=== PATIENT | female | born 1970 | race Caucasian/White ===

== ENCOUNTER → 2022-02-07 | Outpatient (CLI) | payer BC, SELFPAY ==
[2022-02-07 17:27] LABS: Eosinophil# 0.04 X10^3/uL; Eosinophils% 1.9 % (0-5); Hematocrit 45.1 % (37-47); Hemoglobin 14.7 g/dL (12.0-15.0); Lymphocyte % 42.3 % (19-41); Mean Corp Hgb Conc 32.6 g/dL (32-36); Mean Corpuscular Hgb 30.2 pg (27.0-32.0); Mean Corpuscular Volume 92.6 fL (81-99); Mean Platelet Vol. 11.4 fl (6.2-12.0); Monocyte# 0.15 X10^3/uL; NRBC Flagged by Analyzer 0 % (0-5); Neutrophil # 1.03 X10^3/uL (2.7-7.7); Neutrophil % 48.3 % (47-70); Platelet Count 182 K/mm3 (150-450); RBC Distribution Width CV 11.6 % (11.6-14.6); RBC Distribution Width SD 39.5 fl (35.1-43.9); Red Blood Count 4.87 M/mm3 (4.2-5.4); White Blood Count 2.1 K/mm3 (4.4-11.0)
[2022-02-07 17:35] LABS: Erythrocyte Sedimentation Rate 56 mm/hr (0-30)
[2022-02-07 17:57] LABS: ALB/GLOB Ratio 1.3 RATIO (0.9-2.4); AST(SGOT) 15 U/L (15-37); Alanine Aminotransfer ALT/SGPT 26 U/L (13-56); Albumin, Serum 4.8 g/dL (3.2-5.0); Alkaline Phosphatase 73 U/L (45-117); Anion Gap 9 (5-15); BUN 11 mg/dL (7-18); BUN/Creat Ratio 18.9 RATIO (10-20); CRP 5.83 mg/L (0.0-3.0); Chloride 104 mmol/L (98-107); Creatinine, Serum 0.58 mg/dL (0.55-1.02); EST Glomerular Filtration Rate 117 mL/min (>60); Est Glom Filt Rate - Afr Amer 141 mL/min (>60); Estradiol 35.7 pg/mL; Ferritin 156 ng/mL (8-252); Free T3 3.3 pg/mL (2.18-3.98); Globulin 3.8 g/dL (2.2-4.2); Glucose 95 mg/dL (74-106); Iron 88 ug/dL (50-170); Magnesium 2.4 mg/dL (1.6-2.6); Potassium 4.3 mmol/L (3.5-5.1); Protein, Total 8.6 g/dL (6.4-8.2); Sodium Level 143 mmol/L (136-145); Thyroid Stim Hormone (TSH) 0.95 uIU/mL (0.358-3.74)
[2022-02-07 18:01] LABS: Progesterone Level 0.44 ng/mL (See Comment); Vitamin B12 794 pg/mL (211-911); Vitamin D,25 Hydroxy 30.6 ng/mL
== END | disposition home or self-care (01) ==
LOC: LABSPEC 17:12
PROVIDERS: Visit Provider Nurse Practitioner Family
DX: R53.83 Other fatigue (principal); D64.9 Anemia, unspecified; R42 Dizziness and giddiness
CPT/HCPCS: 80053; 82306; 82607; 82627; 82670; 82728; 83540; 83735; 84144; 84403; 84439; 84443; 84481; 85025; 85652; 86140; 82626

== ENCOUNTER → 2023-08-07 | Outpatient (CLI) | payer OTHER, SELFPAY ==
[2023-08-07 16:23] LABS: Absolute Lymphocyte Count 0.98 X10^3/uL (0.83-4.51); Absolute Neutrophil Count 1.1 X10^3/uL (2.0-7.7); Basophil# 0.02 X10^3/uL; Basophil% 0.8 % (0-1); Eosinophil# 0.08 X10^3/uL; Eosinophils% 3.3 % (0-5); Hematocrit 41.5 % (37-47); Hemoglobin 13.4 g/dL (12.0-15.0); Lymphocyte # 0.98 X10^3/ul (0.83-4.51); Mean Corp Hgb Conc 32.3 g/dL (32-36); Mean Corpuscular Hgb 32.1 pg (27.0-32.0); Mean Corpuscular Volume 99.5 fL (81-99); Mean Platelet Vol. 11.1 fl (6.2-12.0); Monocyte# 0.31 X10^3/uL; Monocyte% 12.7 % (0-10); NRBC Flagged by Analyzer 0 % (0-5); Neutrophil # 1.06 X10^3/uL (2.7-7.7); Neutrophil % 43.2 % (47-70); Platelet Count 163 K/mm3 (150-450); RBC Distribution Width CV 12.1 % (11.6-14.6); RBC Distribution Width SD 43.7 fl (35.1-43.9); Red Blood Count 4.17 M/mm3 (4.2-5.4); White Blood Count 2.5 K/mm3 (4.4-11.0)
[2023-08-07 16:48] LABS: ALB/GLOB Ratio 1.6 RATIO (0.9-2.4); AST(SGOT) 28 U/L (15-37); Alanine Aminotransfer ALT/SGPT 21 U/L (13-56); Albumin, Serum 4.4 g/dL (3.2-5.0); Alkaline Phosphatase 71 U/L (45-117); Anion Gap 9 (5-15); BUN 13 mg/dL (7-18); BUN/Creat Ratio 16.7 RATIO (10-20); Calcium,Total 9.6 mg/dL (8.5-10.1); Chloride 107 mmol/L (98-107); Creatinine, Serum 0.78 mg/dL (0.55-1.02); EST Glomerular Filtration Rate 83 mL/min (>60); Est Glom Filt Rate - Afr Amer 100 mL/min (>60); Globulin 2.8 g/dL (2.2-4.2); Glucose 103 mg/dL (74-106); Potassium 3.9 mmol/L (3.5-5.1); Protein, Total 7.2 g/dL (6.4-8.2); Sodium Level 142 mmol/L (136-145)
== END | disposition home or self-care (01) ==
LOC: LABSPEC 15:08
PROVIDERS: Referring Provider Nurse Practitioner Family; Visit Provider Nurse Practitioner Family
DX: R53.82 Chronic fatigue, unspecified (principal); B60.09 Other babesiosis; A69.20 Lyme disease, unspecified
CPT/HCPCS: 80053; 85025